=== PATIENT | female | born 1985 | race Caucasian/White ===

== ENCOUNTER 2019-05-17 07:36 | Outpatient (CLI) | payer BC ==
--- NOTE | 2019-05-17 09:52 | ULT ---
RIGHT UPPER QUADRANT ULTRASOUND: Date: 05/17/2019 HISTORY: Chest pain and gastroesophageal reflux disease. COMPARISON: None. FINDINGS: The liver, visualized portions of the pancreas, visualized portions of the abdominal aorta, visualize d portions of the IVC, gallbladder, and right kidney demonstrate a normal sonographic appearance. The right kidney measures 10.4 cm in length. The common duct measures 0.3 cm in diameter. IMPRESSION: No acute findings are seen. No gallbladder calculi are seen, and the common duct is normal in caliber . POS: MASOOD
== END 2019-05-17 07:37 | disposition home or self-care (01) ==
LOC: SCSULT 07:36
PROVIDERS: ATTEND Physician Assistant Medical
DX: K21.9 Gastro-esophageal reflux disease without esophagitis (principal); R07.9 Chest pain, unspecified
CPT/HCPCS: 76705

== ENCOUNTER 2019-07-04 08:22 | Outpatient (CLI) | payer BC ==
--- NOTE | 2019-07-04 09:39 | CT ---
EXAM: CT Abdomen W Con PROVIDED CLINICAL HISTORY: Left upper quadrant abdominal pain for 2 weeks. History of hiatal hernia. COMPARISON: None FINDINGS: Lung bases are clear. Low-density area is seen in the lateral aspect medial segment left hepatic lobe likely related to foc al area of fatty infiltration versus perfusion defect. Liver otherwise has a normal CT appearance. The spleen, pancreas, and bilateral adrenal glands demonstrate a normal CT appearance. The portal vei n is patent. Subcentimeter too small to characterize hypodense lesions are seen in the midportion and inferior angel e right kidney. Kidneys otherwise demonstrate a normal CT appearance bilaterally. The abdominal aorta is normal in caliber without evidence of an aortic dissection. Loops of opacified small bowel have a normal appearance. No free fluid, fluid collection, or lymphadenopathy is seen in the abdomen. The pelvis was not imaged on this examination. No suspicious lytic or sclerotic osseous lesions are identified. IMPRESSION: 1. No acute findings are seen in the abdomen. 2. Subcentimeter too small to characterize hypodense lesions right kidney.
== END 2019-07-04 08:23 | disposition home or self-care (01) ==
LOC: SCSCT 08:22
PROVIDERS: ATTEND Physician Assistant Medical
DX: K21.9 Gastro-esophageal reflux disease without esophagitis (principal); R10.12 Left upper quadrant pain; N28.89 Other specified disorders of kidney and ureter
CPT/HCPCS: 74160